=== PATIENT | male | born 1980 | race Asian ===

== ENCOUNTER 2022-09-28 21:26 | Inpatient (IN) | payer OTHER, MEDICAID, SELFPAY ==
[2022-09-28 21:34] VITALS: BP 120/81; PULSE 87; RESP 20; TEMP 36.5; O2SAT 98; BMI 25.8
[2022-09-28 21:49] VITALS: BP 120/81; PULSE 87; RESP 20; TEMP 36.5; O2SAT 98
[2022-09-28 22:08] LABS: Appearance Urine Clear; Color Urine Yellow; Glucose Urine UA Negative (Negative); Leukocyte Esterase Urine Negative (Negative); Nitrite Urine Negative (Negative); PH 5.5 (5.0-9.0); Specific Gravity - Urine 1.025 (1.005-1.025); Urine Blood Negative (Negative); Urine Ketones Negative (Negative); Urine Protein Negative (Neg-Trace)
--- NOTE | 2022-09-28 22:15 | ED_ITS ---
HPI - Psych General Chief Complaint: Psychiatric Symptoms Stated Complaint: crisis/ SI Time Seen by Provider: 09/28/22 22:02 Source: patient Mode of arrival: ambulatory Limitations: no limitations History of Present Illness HPI Narrative: Patient comes to the emergency room complaining of depression and suicidal ideation. Patient states that he is going through divorce at home, has been off his meds for about a year. Patient admits to using heroin. Patient told the triage nurse that he was planning to hang himself. Related Data Allergies Allergy/AdvReac Type Severity Reaction Status Date / Time No Known Allergies Allergy Verified 09/28/22 22:07 Review of Systems Review of Systems: Constitutional : No Weight loss, No Fever, No Chills, No Night Sweats, No Fatigue, No Malaise ENT/Mouth : No Hearing loss, No Ear Pain, No Nasal Congestion, No Sinus Pain, No Hoarseness, No sore throat, No Rhinorrhea, No Swallowing Difficulty Eyes: No Eye Pain, No Swelling, No Redness, No Foreign Body, No Discharge, No Vision Changes Cardiovascular : No Chest Pain, No SOB, No Dyspnea on Exertion, No Orthopnea, No Edema, No Palpitations Respiratory : No Cough, No Sputum, No Wheezing, No Smoke Exposure, No Dyspnea Gastrointestinal : No Nausea, No Vomiting, No Diarrhea, No Constipation, No abdominal Pain, No Hematochezia, No Melena Genitourinary : no irregular bleeding, No Dysuria, No Urinary Frequency, No Hematuria, No Urinary Incontinence, No Urgency, No Flank Pain, No Urinary Flow Changes, No Hesitancy Musculoskeletal : No joint pain, No Myalgias, No Joint Swelling Skin : No Skin Lesions, No rash Neuro : No Weakness, No Numbness, No Paresthesias, No Loss of Consciousness, No Dizziness, No Headache Psych : Complaining of anxiety, depression, suicidal ideation, no homicidal ideation Heme/Lymph: No Bruising, No Bleeding,No Lymphadenopathy Endocrine : No Polyuria, No Polydipsia, No Temperature Intolerance PMF Past Medical History Medical History (Updated 09/28/22 @ 22:24 by Cesia De Paz MD) Depression Substance abuse Social History Social History Smoked in Last 30 Days: Yes Use of substances other than those prescribed or required for medical reasons: Yes Substance Use Type: Heroin Advance Directives: No Advance Directives Information Provided: No Physical Exam Vital Signs: Vital Signs: Last Vital Signs Temp 97.7 F 09/28/22 21:49 Pulse 87 09/28/22 21:49 Resp 20 09/28/22 21:49 BP 120/81 09/28/22 21:49 Pulse Ox 98 09/28/22 21:49 O2 Del Method 09/28/22 21:49 BMI result Body Mass Index 25.8 Const: Other: Appearance: Alert. Oriented X3. No acute distress. Eyes: Pupils equal, round and reactive to light. ENT: Pharynx normal. Neck: Normal inspection. Neck supple. No lymph nodes noted. No crepitus CVS: Normal heart rate and rhythm. Pulses normal. Normal S1 and S2 Respiratory: No respiratory distress. Breath sounds normal. No Wheezing. No rales Abdomen: Soft and nontender. No rigidity. No distention. Skin: Skin warm and dry. Normal skin color. Normal skin turgor. Extremities: No lower extremity edema. No Lacerations. No Rash Neuro: Oriented X 3. No motor deficit. No sensory deficit. Moving all extremities. No slurred speech. CN 2 through 12 grossly intact Psych: calm, cooperative, flat affect Course Course Course Narrative: -patient's labs pending -patient on a Section 12 -care team consult pending -physician observation started at 22:20 Medical Decision Making Lab Data Labs: Lab Results 09/28/22 Range/Units 21:52 Urine Color Yellow Urine Appearance Clear Urine pH 5.5 (5.0-9.0) Ur Specific [place] 1.025 (1.005-1.025) Urine Protein Negative (Neg-Trace) mg/dL Urine Glucose (UA) Negative (Negative) mg/dL Urine Ketones Negative (Negative) mg/dL Urine Blood Negative (Negative) Urine Nitrite Negative (Negative) Ur Leukocyte Esterase Negative (Negative) Discharge Plan Discharge Clinical Impression: Suicidal ideation Patient Disposition: Still a Patient Interventions: [place]-Suicide Risk Severity Scale Last Done: 09/28/22 21:39
[2022-09-28 22:20] LABS: Amphetamine Screen Urine Not Detected (Not Detect); Barbiturates, Urine Not Detected (Not Detect); Benzodiazepines Screen Urine Not Detected (Not Detect); Cannabinoid Screen Urine POSITIVE (Not Detect); Cocaine Screen Urine POSITIVE (Not Detect); Fentanyl, urine POSITIVE (Not Detect); Opiate Screen Urine Not Detected (Not Detect); Phencyclidine Screen Urine Not Detected (Not Detect)
[2022-09-28 22:21] LABS: MANUAL DIFF FLAG NO
[2022-09-28 22:22] LABS: Basophils Percent Auto 0.3 % (0-2); Eosinophils Absolute Auto 0.2 X10*3/uL (0.0-0.4); Eosinophils Percent Auto 1.8 % (0-4); Hematocrit 42.4 % (42.0-52.0); Hemoglobin 14.2 g/dl (14.0-18.0); Imm Gran Abs Auto 0.02 X10*3/uL (0.00-0.03); Imm Gran Pct Auto 0.2 % (0.0-0.4); Lymphocytes Absolute Auto 2.8 X10*3/uL (1.2-4.9); Lymphocytes Percent Auto 29.3 % (20-40); Mean Corpuscular HGB Conc 33.5 g/dl (31.0-36.0); Mean Corpuscular Hemoglobin 30.8 pg (27.0-33.0); Mean Platelet Volume 9.3 fL (9.4-12.4); Monocytes Absolute Auto 0.6 X10*3/uL (0.1-1.2); Monocytes Percent Auto 6.5 % (2-11); Neutrophils Percent Auto 61.9 % (45-73); Platelet Count 256 X10*3/uL (160-400); Red Blood Count 4.61 X10*6/uL (4.60-5.80); Red Cell Distribution Width 12.8 % (11.0-16.0); White Blood Count 9.7 X10*3/uL (4.8-10.8)
[2022-09-28 22:26] LABS: COVID-19 Test Negative (Negative); IDNOW Serial# 6674DD1D
[2022-09-28 22:40] LABS: Alanine Aminotransferase 29 U/L (0-40); Albumin Level 3.8 g/dL (3.5-5.0); Alkaline Phosphatase 88 U/L (39-117); Anion Gap 10 (12-20); Aspartate Amino Transferase 26 U/L (5-37); Bilirubin Direct < 0.2 mg/dL (0.0-0.5); Bilirubin Total 0.3 mg/dL (0.0-1.0); Blood Urea Nitrogen 15 mg/dL (9-16); Calcium 8.4 mg/dL (8.4-10.2); Carbon Dioxide 28 mmol/L (22-29); Chloride 104 mmol/L (96-108); Creatinine Clr Calc Pharmacy 90.4; Estimated Glomerular Filt Rate > 60; Ethanol < 10 mg/dL; Glucose Random 146 mg/dL (60-115); Potassium 3.8 mmol/L (3.3-5.1); Sodium 138 mmol/L (135-145); Total Protein 6.1 g/dL (6.5-8.0)
--- NOTE | 2022-09-29 | ECG_ITS ---
Test Reason : MEDICAL CLEARANCE Blood Pressure : / mmHG Vent. Rate : 086 BPM Atrial Rate : 086 BPM P-R Int : 140 ms QRS Dur : 088 ms QT Int : 374 ms P-R-T Axes : 069 046 053 degrees QTc Int : 447 ms Normal sinus rhythm with sinus arrhythmia Normal ECG No previous ECGs available Referred By: Gold Nicolas Electronically Signed By:Ad Lang
[2022-09-29] MEDS: LORazepam 1 MG TABLET 2 MG PO (00:12)
[2022-09-29 00:13] VITALS: BP 108/63; PULSE 68; RESP 18; TEMP 37; O2SAT 99
--- NOTE | 2022-09-29 00:14 | PC.NURSE ---
Pt requesting something to help with withdrawal symptoms. Pt reported shakiness, chills, nausea, and sweating. Dr. De Paz ordered ativan which was administered. Will continue to monitor.
[2022-09-29] MEDS: traZODone HCL 25 MG HALFTAB PO ×2 (00:24→19:45)
[2022-09-29 03:30] VITALS: BP 110/73; PULSE 74; RESP 16; TEMP 37; O2SAT 99
[2022-09-29] MEDS: ALPRAZolam 0.5 MG TABLET PO (05:07)
[2022-09-29 08:10] VITALS: BP 125/45; PULSE 74; RESP 14; TEMP 37.1; O2SAT 98
--- NOTE | 2022-09-29 09:50 | PC.NURSE ---
Per MD, withholding Suboxone order d/t pt testing positive for Fentynal in urine toxicology screen last night.
[2022-09-29 11:06] VITALS: BP 125/60; PULSE 82; RESP 18; O2SAT 98
[2022-09-29] MEDS: Buprenorphine/Naloxone 8/2 mg FILM 2 FILM SUBLINGUAL (12:16)
[2022-09-29 19:10] VITALS: BP 126/67; PULSE 86; TEMP 36.7
--- NOTE | 2022-09-30 01:22 | PC.ADMIT ---
A Fijian speaking, male aged 41 years was [facility] at 1720 following referral from [facility] ED and CARE team. Pt is not known to and was unable to say if he has had previous inpatient psychiatric or detoxification hospitalizations. Pt self-presented to [facility] ED on 09/28/22 due to SI with plan to hang self and ongoing daily intranasal opiate use. Pt reports feeling depressed, hopeless and guilty. In CARE team assessment, pt reported AH commanding self-harm, but pt reported no current AH today. Pt reported a suicide attempt years ago via drinking bleach. Pt was unable to remember the name of his PCP, but thinks PCP prescribes his trazodone that he takes at home for sleep. Pt has no other providers and was unsure of the name of his pharmacy. Pt lay down in bed upon arrival when he was shown his room. Pt was flat and made little eyecontact. Pt denies but appears anxious and depressed. Pt said he has not had helpful meds in the past, and was unable to identify any helpful medications. Pt denied pain, and said he earlier had experienced withdrawal symptoms but had no current W/D symptoms. Pt refused to participate in the admission, saying I'll do it tomorrow . When a few more questions were asked, pt stated I'm becoming irritated and pulled the covers over his head. Pt lives with significant other and is unemployed with little daytime structure. Pt was informed of his human rights and it was explained how he can initiate a 3 day notice of intent to revoke his conditional voluntary admission legal status. Pt denies medical; issues. Pt had LOVE positive for fentanyl , cocaine, THC; Etoh was <10. Pt is resting in room on 15 minute safety checks at this time. Nurse-Nurse done, admission orders obtained. Initial treatment plan done. Pt declined to do safety tool.
[2022-09-30 09:39] LABS: Estimated Average Glucose 97 mg/dL
[2022-09-30 09:43] VITALS: BP 132/58; PULSE 75; RESP 18; TEMP 36.7; O2SAT 98
[2022-09-30] MEDS: Buprenorphine/Naloxone 8/2 mg FILM 2 FILM SUBLINGUAL (09:45)
--- NOTE | 2022-09-30 10:19 | HO.PSYADMNOT ---
HPI Date of Service: 09/30/22 Chief Complaint: Depression, SI, Polysubstance use disorder Sources of Information: patient interviewed, chart reviewed and crisis/core team assessment reviewed HPI Subjective Notes: Owen Warning and Conditional Voluntary Narrative: Patient is a 42-year-old male with history of depression and substance abuse who presents for worsening depression and the face of heroin abuse and relational strife. Patient reports that he has struggled with heroin addiction for around 15 years or more. Patient reports that a year ago he found out that his has been having an affair. Up until that point patient denies any history of depression or anxiety. He said that since then he has been struggling with feeling sad and down and started using heroin more often to smoke away the pain. Patient reports that he try to get sober a couple months ago with the help his brother and was sober for 2 months but he could not stop thinking of his 's affair, the deteriorating relationship and just wanted to use and so he relapsed. Since then he has been living at his ex-'s house who is supportive. This past week patient, upset with his addiction and struggles to maintain a job had suicidal thoughts such as what is the point of living. He had a thought of hanging himself but never any intention or plans and says there were just thoughts. Patient was unsure what to do but knew that opioid addiction was making his depression worsened harder to get over so he came to the emergency room. Patient was briefly on Suboxone at a detox a month ago and found it helpful. He was started on it in the emergency room and again found that it was very helpful. Patient wants to remain on. He denies any SI at all; he did attempt suicide 1 time before his life but it was about 20 years ago and since then denies any SI, or depression or anxiety; patient denies any history of trauma; denies history of manic type episodes or behaviors; denies alcohol abuse. Patient says that he has a job interview tomorrow at [employer], which he obtained through his son who works there now. Patient is very eager to get to have this interview saying that working considerably helps him stay sober and stable. Patient does not feel any need for antidepressant medications and has no history of taking any. He would like to get on Suboxone as an outpatient and also agrees to [facility] recovery. Patient is asking for discharge in time to make the interview. Past Psychiatric History: Remote history; overdose attempt in his early 20s; since then denies any psychiatric history Medical Evaluation Reviewed: Yes [facility] Medical History (Updated 09/30/22 @ 14:05 by Speedy Patel MD) Cocaine use disorder Depression Opioid dependence Substance abuse Family History: Denies Social History: Finished 11th grade Has 3 children who live with his ex- who is supportive and is currently letting him stay there Currently but in the process of getting Substance History: Opioid addiction since his 20s Trauma History: Denies Diagnostics Vital Signs (24Hr): Vital Signs - 24 hr 09/29/22 11:06 09/29/22 19:10 09/30/22 09:43 Temperature 98.0 F 98.0 F Pulse Rate 82 86 75 Respiratory Rate 18 18 Blood Pressure 125/60 126/67 132/58 L Pulse Oximetry 98 98 Oxygen Delivery Method Room Air Room Air BMI result Body Mass Index 25.8 Labs 09/28/22 22:15 09/28/22 22:15 Labs: Laboratory Results - last 48 hr 09/28/22 09/28/22 09/28/22 21:52 21:52 22:01 WBC RBC Hgb Hct MCV MCH MCHC RDW Plt Count MPV Immature Gran % (Auto) Neut % (Auto) Lymph % (Auto) [place] % (Auto) Eos % (Auto) Baso % (Auto) Lymph # (Auto) [place] # (Auto) Eos # (Auto) Baso # (Auto) Abs Immat Gran (auto) Absolute Neuts (auto) Absolute Nucleated RBC Nucleated RBC % (auto) Sodium Potassium Chloride Carbon Dioxide Anion Gap BUN Creatinine Estim Creat Clear Calc Estimated GFR Random Glucose Estimat Average Glucose Hemoglobin A1c % Calcium Total Bilirubin Direct Bilirubin AST ALT Alkaline Phosphatase Total Protein Albumin Urine Color Yellow Urine Appearance Clear Urine pH 5.5 Ur Specific [place] 1.025 Urine Protein Negative Urine Glucose (UA) Negative Urine Ketones Negative Urine Blood Negative Urine Nitrite Negative Ur Leukocyte Esterase Negative Urine Opiates Screen Not Detected Urine Fentanyl Screen POSITIVE H Ur Barbiturates Screen Not Detected Ur Phencyclidine Scrn Not Detected Ur Amphetamines Screen Not Detected U Benzodiazepines Scrn Not Detected Urine Cocaine Screen POSITIVE H U Marijuana (THC) Screen POSITIVE H Ethyl Alcohol COVID-19 ([facility]) Negative COVID-19 Clin Com See Note 09/28/22 09/28/22 09/30/22 22:15 22:15 08:34 WBC 9.7 RBC 4.61 Hgb 14.2 Hct 42.4 MCV 92.0 MCH 30.8 MCHC 33.5 RDW 12.8 Plt Count 256 MPV 9.3 L Immature Gran % (Auto) 0.2 Neut % (Auto) 61.9 Lymph % (Auto) 29.3 [place] % (Auto) 6.5 Eos % (Auto) 1.8 Baso % (Auto) 0.3 Lymph # (Auto) 2.8 [place] # (Auto) 0.6 Eos # (Auto) 0.2 Baso # (Auto) 0.0 Abs Immat Gran (auto) 0.02 Absolute Neuts (auto) 6.0 Absolute Nucleated RBC 0.000 Nucleated RBC % (auto) 0.0 Sodium 138 Potassium 3.8 Chloride 104 Carbon Dioxide 28 Anion Gap 10 L BUN 15 Creatinine 0.99 Estim Creat Clear Calc 90.4 Estimated GFR > 60 Random Glucose 146 H Estimat Average Glucose 97 Hemoglobin A1c % 5.0 Calcium 8.4 Total Bilirubin 0.3 Direct Bilirubin < 0.2 AST 26 ALT 29 Alkaline Phosphatase 88 Total Protein 6.1 L Albumin 3.8 Urine Color Urine Appearance Urine pH Ur Specific [place] Urine Protein Urine Glucose (UA) Urine Ketones Urine Blood Urine Nitrite Ur Leukocyte Esterase Urine Opiates Screen Urine Fentanyl Screen Ur Barbiturates Screen Ur Phencyclidine Scrn Ur Amphetamines Screen U Benzodiazepines Scrn Urine Cocaine Screen U Marijuana (THC) Screen Ethyl Alcohol < 10 COVID-19 ([facility]) COVID-19 Clin Com Meds/Allergies Meds Home Medications Medication Instructions Recorded Confirmed Type trazodone 25 mg PO BEDTIME 09/29/22 09/29/22 History Allergies Allergies Allergy/AdvReac Type Severity Reaction Status Date / Time No Known Allergies Allergy Verified 09/28/22 22:07 Mental Status Exam Mental Status Exam Narrative: Pt is alert and oriented; behavior is cooperative, friendly and calm; patient is not in distress; dressed in hospital attire with adequate hygiene; mood is described as depressed and affect congruent; eye contact appropriate; Speech is normal rate, volume and prosody and not pressured; no psychomotor agitation/retardation present; thought process is organized and goal directed; Thought content is on tx; otherwise pertinent to relevant topics and without any delusional content, paranoid ideations or grandiosity; denies any SI/HI. There is no evidence of perceptual disturbance. Patients insight and judgment appear intact. Assessment & Plan Assessment & Plan (1) MDD (major depressive disorder), single episode: Status: Acute Code(s): F32.9 - Major depressive disorder, single episode, unspecified (2) Opioid dependence: Status: Acute Code(s): F11.20 - Opioid dependence, uncomplicated (3) Cocaine use disorder: Status: Acute Code(s): F14.10 - Cocaine abuse, uncomplicated Plan HPI: Patient is a 42-year-old male with history of depression and substance abuse who presents for worsening depression and the face of heroin abuse and relational strife. Patient reports that he has struggled with heroin addiction for around 15 years or more. Patient reports that a year ago he found out that his has been having an affair. Up until that point patient denies any history of depression or anxiety. He said that since then he has been struggling with feeling sad and down and started using heroin more often to smoke away the pain. Patient reports that he try to get sober a couple months ago with the help his brother and was sober for 2 months but he could not stop thinking of his 's affair, the deteriorating relationship and just wanted to use and so he relapsed. Since then he has been living at his ex-'s house who is supportive. This past week patient, upset with his addiction and struggles to maintain a job had suicidal thoughts such as what is the point of living. He had a thought of hanging himself but never any intention or plans and says there were just thoughts. Patient was unsure what to do but knew that opioid addiction was making his depression worsened harder to get over so he came to the emergency room. Patient was briefly on Suboxone at a detox a month ago and found it helpful. He was started on it in the emergency room and again found that it was very helpful. Patient wants to remain on. He denies any SI at all; he did attempt suicide 1 time before his life but it was about 20 years ago and since then denies any SI, or depression or anxiety; patient denies any history of trauma; denies history of manic type episodes or behaviors; denies alcohol abuse. Patient says that he has a job interview tomorrow at [employer], which he obtained through his son who works there now. Patient is very eager to get to have this interview saying that working considerably helps him stay sober and stable. Patient does not feel any need for antidepressant medications and has no history of taking any. He would like to get on Suboxone as an outpatient and also agrees to [facility] recovery. Patient is asking for discharge in time to make the interview. Impression: Who patient signed a 3 day. Patient does not want her feeling need for antidepressant medications saying that this is the 1st time he has ever been depressed and that it is situational and regarding his pending divorce. Patient says on Suboxone he is feeling much better, clear minded and would like to be discharged. He says he has never had any thoughts of self-harm for close to 20 years. Denies any active SI at all, saying he just had thoughts and would never act upon it. Patient has 3 children who also serve as a protective factor. Patient does not want to attend an aftercare program, [facility] or the like; he does however like the idea of a [facility] recovery to help him through sobriety. Mostly, Patient is pinning his hopes on Suboxone; while patient minimizes his need for more intensive help to stay sober he has not closed off to it. Patient feels that this job interview tomorrow is a big factor in his remaining stable. He says the interview has been set up for weeks and that working significantly helps him remained stable. Surgery Consultant and forensic social worker met with patient together and afterwards discussed patient's care. Both agree that there is likely little benefit to be obtained by keeping patient on the unit longer. Patient is polite, calm and cooperative. He has put in a 3 day notice saying he is safe, has no SI at all, does not feel the need to be on a psychiatric unit but just needed help to get on Suboxone. Patient does not want any further medication; patient does not want any aftercare programs. Patient is already being set up with an appointment for Suboxone and [facility] recovery is meeting with him today. Furthermore, this opportunity for him to secure employment is likely a stabilizing factor and to miss this opportunity could prove otherwise. At this time both assembly instructions writer and forensic social worker conclude that patient is not in imminent risk of harm to self or others; as it does not seem that further inpatient stable benefit patient and that he does not rise to the level of involuntary commitment, his request for discharge should be honored. Surgery Consultant attempted to call exwife with whom he lives; pt signed WINTER and gave phone number, but assembly instructions writer could not get ahold of her. Patient educated on: diagnosis, medication risk/benefits, substance abuse and therapeutic strategies Informed Consent: understands and further education needed Reason for continued inpatient stay Substantial Risk for: stable for discharge Statement Statement: I have reviewed the history and physical and performed a pertinent examination on my patient. No changes have occurred unless specified. If the History and Physical was not performed prior to admission, the Hospitalist's service will be consulted for completing the admission physical. Time Spent With Patient Time: Total time managing care of this patient today ____ minutes.
[2022-09-30 10:32] LABS: Cholesterol 173 mg/dL; HDL Cholesterol 44 mg/dL; LDL Cholesterol Calculated 117 mg/dl; Triglycerides 62 mg/dL
[2022-09-30 10:35] LABS: Free T4 (Free Thyroxine) 0.93 ng/dL (0.71-1.85); Vitamin B12 356 pg/mL (200-900)
--- NOTE | 2022-09-30 14:36 | PC.NURSE ---
Patient declined NRT at this time.
--- NOTE | 2022-09-30 16:02 | P.DS_ITS ---
DS: Providers Provider Date of Service: 09/30/22 Date of admission: 09/29/22 16:05 Date of discharge: 09/30/22 Primary care physician: None Physician Attending physician on admission: Speedy Patel Attending physician on discharge: Speedy Patel DS: Diagnosis Discharge Diagnosis (1) MDD (major depressive disorder), single episode: Status: Acute (2) Opioid dependence: Status: Acute (3) Cocaine use disorder: Status: Acute DS: Medications Discharge Medications Home Medications: Home Medications Medication Instructions Recorded Confirmed trazodone 25 mg PO BEDTIME 09/29/22 09/29/22 Previous Rx's Medication Instructions Recorded buprenorphine 8 mg-naloxone 2 mg 2 film sublingual DAILY 1 day #2 ea 09/30/22 sublingual film (Suboxone) Mental Status Exam Mental Status Exam Narrative: Pt is alert and oriented; behavior is cooperative, friendly and calm; patient is not in distress; dressed in hospital attire with adequate hygiene; mood is described as depressed and affect congruent; eye contact appropriate; Speech is normal rate, volume and prosody and not pressured; no psychomotor agitation/retardation present; thought process is organized and goal directed; Thought content is on tx; otherwise pertinent to relevant topics and without any delusional content, paranoid ideations or grandiosity; denies any SI/HI. There is no evidence of perceptual disturbance. Patients insight and judgment appear intact. Data Data Completed and Pending Completed studies during hospitalization [Text1]: 09/28/22 09/28/22 09/28/22 21:52 21:52 22:01 WBC RBC Hgb Hct MCV MCH MCHC RDW Plt Count MPV Immature Gran % (Auto) Neut % (Auto) Lymph % (Auto) [place] % (Auto) Eos % (Auto) Baso % (Auto) Lymph # (Auto) [place] # (Auto) Eos # (Auto) Baso # (Auto) Abs Immat Gran (auto) Absolute Neuts (auto) Absolute Nucleated RBC Nucleated RBC % (auto) Sodium Potassium Chloride Carbon Dioxide Anion Gap BUN Creatinine Estim Creat Clear Calc Estimated GFR Random Glucose Estimat Average Glucose Hemoglobin A1c % Calcium Magnesium Total Bilirubin Direct Bilirubin AST ALT Alkaline Phosphatase Total Protein Albumin Triglycerides Cholesterol LDL Cholesterol, Calc HDL Cholesterol Vitamin B12 TSH Free T4 Urine Color Yellow Urine Appearance Clear Urine pH 5.5 Ur Specific Basile 1.025 Urine Protein Negative Urine Glucose (UA) Negative Urine Ketones Negative Urine Blood Negative Urine Nitrite Negative Ur Leukocyte Esterase Negative Urine Opiates Screen Not Detected Urine Fentanyl Screen POSITIVE H Ur Barbiturates Screen Not Detected Ur Phencyclidine Scrn Not Detected Ur Amphetamines Screen Not Detected U Benzodiazepines Scrn Not Detected Urine Cocaine Screen POSITIVE H U Marijuana (THC) Screen POSITIVE H Ethyl Alcohol COVID-19 ([facility]) Negative COVID-19 Clin Com See Note 09/28/22 09/28/22 09/30/22 22:15 22:15 08:34 WBC 9.7 RBC 4.61 Hgb 14.2 Hct 42.4 MCV 92.0 MCH 30.8 MCHC 33.5 RDW 12.8 Plt Count 256 MPV 9.3 L Immature Gran % (Auto) 0.2 Neut % (Auto) 61.9 Lymph % (Auto) 29.3 [place] % (Auto) 6.5 Eos % (Auto) 1.8 Baso % (Auto) 0.3 Lymph # (Auto) 2.8 [place] # (Auto) 0.6 Eos # (Auto) 0.2 Baso # (Auto) 0.0 Abs Immat Gran (auto) 0.02 Absolute Neuts (auto) 6.0 Absolute Nucleated RBC 0.000 Nucleated RBC % (auto) 0.0 Sodium 138 Potassium 3.8 Chloride 104 Carbon Dioxide 28 Anion Gap 10 L BUN 15 Creatinine 0.99 Estim Creat Clear Calc 90.4 Estimated GFR > 60 Random Glucose 146 H Estimat Average Glucose 97 Hemoglobin A1c % 5.0 Calcium 8.4 Magnesium Total Bilirubin 0.3 Direct Bilirubin < 0.2 AST 26 ALT 29 Alkaline Phosphatase 88 Total Protein 6.1 L Albumin 3.8 Triglycerides Cholesterol LDL Cholesterol, Calc HDL Cholesterol Vitamin B12 TSH Free T4 Urine Color Urine Appearance Urine pH Ur Specific [place]ile Urine Protein Urine Glucose (UA) Urine Ketones Urine Blood Urine Nitrite Ur Leukocyte Esterase Urine Opiates Screen Urine Fentanyl Screen Ur Barbiturates Screen Ur Phencyclidine Scrn Ur Amphetamines Screen U Benzodiazepines Scrn Urine Cocaine Screen U Marijuana (THC) Screen Ethyl Alcohol < 10 COVID-19 ([facility]) COVID-19 Clin Com 09/30/22 08:34 WBC RBC Hgb Hct MCV MCH MCHC RDW Plt Count MPV Immature Gran % (Auto) Neut % (Auto) Lymph % (Auto) [place] % (Auto) Eos % (Auto) Baso % (Auto) Lymph # (Auto) [place] # (Auto) Eos # (Auto) Baso # (Auto) Abs Immat Gran (auto) Absolute Neuts (auto) Absolute Nucleated RBC Nucleated RBC % (auto) Sodium Potassium Chloride Carbon Dioxide Anion Gap BUN Creatinine Estim Creat Clear Calc Estimated GFR Random Glucose Estimat Average Glucose Hemoglobin A1c % Calcium Magnesium 2.0 Total Bilirubin Direct Bilirubin AST ALT Alkaline Phosphatase Total Protein Albumin Triglycerides 62 Cholesterol 173 LDL Cholesterol, Calc 117 HDL Cholesterol 44 Vitamin B12 356 TSH 0.20 L Free T4 0.93 Urine Color Urine Appearance Urine pH Ur Specific [place]ile Urine Protein Urine Glucose (UA) Urine Ketones Urine Blood Urine Nitrite Ur Leukocyte Esterase Urine Opiates Screen Urine Fentanyl Screen Ur Barbiturates Screen Ur Phencyclidine Scrn Ur Amphetamines Screen U Benzodiazepines Scrn Urine Cocaine Screen U Marijuana (THC) Screen Ethyl Alcohol COVID-19 ([facility]) COVID-19 Clin Com DS: Summary Hospital Course Hospital Course: HPI: Patient is a 42-year-old male with history of depression and substance abuse who presents for worsening depression and the face of heroin abuse and relational strife.? Patient reports that he has struggled with heroin addiction for around 15 years or more.? Patient reports that a year ago he found out that his has been having an affair.? Up until that point patient denies any history of depression or anxiety.? He said that since then he has been struggling with feeling sad and down and started using heroin more often to smoke away the pain. Patient reports that he try to get sober a couple months ago with the help his brother and was sober for 2 months but he could not stop thinking of his 's affair, the deteriorating relationship and just wanted to use and so he relapsed.? Since then he has been living at his ex-'s house who is supportive.? This past week patient, upset with his addiction and struggles to maintain a job had suicidal thoughts such as what is the point of living.? He had a thought of hanging himself but never any intention or plans and says there were just thoughts. Patient was unsure what to do but knew that opioid addiction was making his depression worsened harder to get over so he came to the emergency room.? Patient was briefly on Suboxone at a detox a month ago and found it helpful.? He was started on it in the emergency room and again found that it was very helpful.? Patient wants to remain on.? He denies any SI at all; he did attempt suicide 1 time before his life but it was about 20 years ago and since then denies any SI, or depression or anxiety; patient? denies any history of trauma; denies history of manic type episodes or behaviors; denies alcohol abuse.? Patient says that he has a job interview tomorrow at [email or web address], which he obtained through his son who works there now.? Patient is very eager to get to have this interview saying that working considerably helps him stay sober and stable.? Patient does not feel any need for antidepressant medications and has no history of taking any.? He would like to get on Suboxone as an outpatient and also agrees to middle school sports coach.? Patient is asking for discharge in time to make the interview. Impression: Who patient signed a 3 day.? Patient does not want her feeling need for antidepressant medications saying that this is the 1st time he has ever been dep ressed and that it is situational and regarding his pending divorce.? Patient says on Suboxone he is feeling much better, clear minded and would like to be discharged.? He says he has never had any thoughts of self-harm for close to 20 years.? Denies any active SI at all, saying he just had thoughts and would never act upon it.? Patient has 3 children who also serve as a protective factor.? Patient does not want to attend an aftercare program, [facility] or the like; he does however like the idea of a middle school sports coach to help him through sobriety.? Mostly, Patient is pinning his hopes on Suboxone; while patient minimizes his need for more intensive help to stay sober he has not closed off to it.? Patient feels that this job interview tomorrow is a big factor in his remaining stable.? He says the interview has been set up for weeks and that working significantly helps him remained stable.? Marine Engine Machinist and social sciences department chair met with patient together and afterwards discussed patient's care.? Both agree that there is likely little benefit to be obtained by keeping patient on the unit longer.? Patient is polite, calm and cooperative.? He has put in a 3 day notice saying he is safe, has no SI at all, does not feel the need to be on a psychiatric unit but just needed help to get on Suboxone.? Patient does not want any further medication; patient does not want any aftercare programs.? Patient is already being set up with an appointment for Suboxone and middle school sports coach is meeting with him today.? Furthermore, this opportunity for him to secure employment is likely a stabilizing factor and to miss this opportunity could prove otherwise. At this time both commercial loan underwriter and social sciences department chair conclude that patient is not in imminent risk of harm to self or others; as it does not seem that further inpatient stable benefit patient and that he does not rise to the level of involuntary commitment, his request for discharge should be honored. Marine Engine Machinist attempted to call exwife with whom he lives; pt signed WINTER and gave phone number, but commercial loan underwriter could not get ahold of her. Time spent discussing smoking cessation with patient: 3 to 10 minutes Status at Discharge Functional status at discharge: independent ambulation Overall status at discharge: patient is back to baseline Time Spent with Patient Time attestation: Total time managing care of this patient today ____ minutes. Time spent: Less than 30 minutes Discharge Plan Discharge Anticipated Discharge Date/Time: 09/30/22 16:55 Patient Disposition: Home, Self-Care Discharge Diagnosis: MDD, single episode, moderate in partial remission Referrals: Simi: Measurement Coordinator [Other] - 1 Week (Measurement Coordinator Resource) [facility] [Other] - 1 Week ([facility] Recovery Resources (recovery coaching)) [facility] [Other] - 1 Week (Information for Mental Health Services ) [facility] [Other] - 10/01/22 2:00 pm (Referral for medication assisted treatment (MAT) Suboxone Appointment in person at [facility] ) Physician,None [Primary Care Provider] - 1 Week Discharge Medications: New buprenorphine-naloxone [Suboxone] 8-2 mg Film 2 film sublingual DAILY 1 Days Qty: 2 0RF Continued trazodone 25 mg PO BEDTIME Discontinued buprenorphine-naloxone [Suboxone] 8-2 mg film 2 strip sublingual DAILY Discharge Orders: Discharge Order (Routine); Ordered 09/30/22 Ordered By: Speedy Patel Diet: Regular diet Activity on Discharge: As tolerated Stand Alone Forms: Patient Portal Discharge page, Community Support Care Plan Goals: Maintain mood and safe behaviors Take medications as prescribed Continue to pursue sobriety Practice coping skills Continue with outpatient providers and reach out to them as needed Health Concerns: Mood stability and behaviors Sobriety Plan of Treatment: Follow up with your Psychiatric provider and other outpatient providers regarding above concerns Take medications as prescribed Assessment: Risk assessment at time of discharge:? Patient was interviewed prior to discharge and found to be fully oriented and without any SI or HI. Patient has insight and demonstrates good judgment in terms of wanting to pursue treatment. Patient is not in imminent risk of harm to self or others and has a safety plan that includes presenting to the closest ER or calling 911 if feeling unsafe.? Patient has been observed closely by nursing and unit staff throughout admission; patient has not engaged in any behaviors that suggest dangerousness to self or others and has demonstrated appropriate behaviors and impulse control
== END 2022-09-30 05:30 | disposition home or self-care (01) | DRG 751 ==
LOC: HO.ED 09-29 12:17 → HO.PM5 09-29 16:12
PROVIDERS: Clinical Nurse Specialist Psychiatric/Mental Health, Adult; Admitting Provider Psychiatry & Neurology Psychiatry; Emergency Provider Emergency Medicine; Visit Provider Psychiatry & Neurology Psychiatry
DX: F32.1 Major depressive disorder, single episode, moderate (principal); R45.851 Suicidal ideations; F11.20 Opioid dependence, uncomplicated; F14.10 Cocaine abuse, uncomplicated; Z20.822 Contact with and (suspected) exposure to COVID-19
CPT/HCPCS: 36415; 80048; 80061; 80076; 80307; 81003; 82077; 82607; 83036; 83735; 84439; 84443; 85025; 87635; 93005; 99285; S9485

== ENCOUNTER → 2022-10-09 09:01 | Outpatient (BNVA) | payer MEDICAID, SELFPAY | PROVIDERS: Visit Provider Nurse Practitioner Psychiatric/Mental Health | DX: Z51.81 Encounter for therapeutic drug level monitoring (principal); F11.20 Opioid dependence, uncomplicated | CPT/HCPCS: 80305; 99202 ==

== ENCOUNTER → 2022-10-16 09:16 | Outpatient (BNVA) | payer MEDICAID, SELFPAY | PROVIDERS: Visit Provider Nurse Practitioner Psychiatric/Mental Health | DX: F11.20 Opioid dependence, uncomplicated (principal); F14.10 Cocaine abuse, uncomplicated | CPT/HCPCS: 80305; 99212 ==

== ENCOUNTER 2022-10-23 09:04 | Outpatient (REF) | payer MEDICAID, SELFPAY ==
[2022-11-02 08:05] LABS: Buprenorphine NEGATIVE; Naloxone NEGATIVE; Norbuprenorphine NEGATIVE
== END 2022-10-23 09:05 | disposition home or self-care (01) ==
LOC: HO.LAB 09:04
PROVIDERS: Visit Provider Nurse Practitioner Psychiatric/Mental Health
DX: F11.20 Opioid dependence, uncomplicated (principal); Z51.81 Encounter for therapeutic drug level monitoring; Z79.899 Other long term (current) drug therapy
CPT/HCPCS: 80305; 80348; 80362; 99212

== ENCOUNTER → 2022-10-30 09:03 | Outpatient (BNVA) | payer MEDICAID, SELFPAY | PROVIDERS: Visit Provider Nurse Practitioner Psychiatric/Mental Health | DX: Z51.81 Encounter for therapeutic drug level monitoring (principal); F11.20 Opioid dependence, uncomplicated | CPT/HCPCS: 80305; 99212 ==

== ENCOUNTER → 2022-11-03 09:15 | Outpatient (BNVA) | payer MEDICAID, SELFPAY | PROVIDERS: Visit Provider Nurse Practitioner Psychiatric/Mental Health | DX: Z13.89 Encounter for screening for other disorder (principal) ==

== ENCOUNTER 2023-03-03 22:50 | Emergency (ER) | payer MEDICAID, SELFPAY ==
[2023-03-03 23:15] VITALS: BP 130/80; PULSE 85; RESP 16; TEMP 36.6; O2SAT 98; BMI 50.1
--- NOTE | 2023-03-03 23:17 | ED.PSYCH ---
HPI - Psych General Chief Complaint: Psychiatric Symptoms Stated Complaint: SI/Crisis Time Seen by Provider: 03/03/23 23:16 Source: patient Mode of arrival: ambulatory History of Present Illness HPI Narrative: Patient with history of heroin abuse been to detox multiple times was there for 10 days came out within 24 hours start using heroin again has happened multiple times wants to stop it but feels very hard feel depressed hurting himself without any plan, patient uses a bundle a day Related Data Home Medications Medication Instructions Recorded Confirmed gabapentin 300 mg capsule 300 mg PO TID 03/03/23 03/03/23 melatonin 3 mg tablet 3 mg PO BEDTIME 03/03/23 03/03/23 nicotine 21 mg/24 hr daily 1 patch topical DAILY 03/03/23 03/03/23 transdermal patch trazodone 50 mg tablet 50 mg PO BEDTIME 03/03/23 03/03/23 Allergies Allergy/AdvReac Type Severity Reaction Status Date / Time No Known Allergies Allergy Verified 03/03/23 23:19 Review of Systems Review of Systems: Yes all other systems are reviewed and are negative [facility] Past Medical History Medical History Cocaine use disorder Depression Opioid dependence Substance abuse Social History Social History Household Members: Significant Other Housing: Unknown / Unable to assess Do you presently have visiting nurse or other home services: No Unable to assess alcohol history related to: Refusing to respond Patient Tobacco Use Status: Refuse Tobacco use screen Substance Use Type: Crack/Cocaine, Heroin, Marijuana and Opiates Advance Directives: No Advance Directives Information Provided: No service: No Sexual orientation: Straight/Heterosexual Physical Exam Vital Signs: Vital Signs: Last Vital Signs Temp 97.8 F 03/03/23 23:15 Pulse 85 03/03/23 23:15 Resp 16 03/03/23 23:15 BP 130/80 03/03/23 23:15 Pulse Ox 98 03/03/23 23:15 O2 Del Method Room Air 03/03/23 23:15 BMI result Body Mass Index 50.1 Appearance: Alert. Oriented X3. No acute distress. Eyes: PERRLA, No Nystagmus ENT: Pharynx normal. Oral Mucosa moist Neck: Normal inspection. Neck supple. CVS: Normal heart rate and rhythm. Pulses normal. Respiratory: No respiratory distress. Equal air entry bilateral, no wheezing/rales/rhonchi Abdomen: Soft and nontender. Bowel sounds are present, no mass palpable, no CVA tenderness Skin: Skin warm and dry. Normal skin color. Normal skin turgor. Extremities: No lower extremity edema. No calf tenderness IVDA track inge++ psych: Feel depressed without any SI plan, no hallucination/ delusion Neuro: Oriented X 3. No motor deficit. No sensory deficit.No cerebellar signs , cranial nerves II-XII intact Medical Decision Making Medical Decision Making MDM Narrative: Patient heroin dependence with depression with suicidal ideation stable labs and vitals , care team consulted for evaluation Lab Data MDM Lab Attestation statement: I reviewed the patient's lab results. 03/03/23 23:34 03/03/23 23:34 Labs: Lab Results 03/03/23 03/03/23 Range/Units 23:34 23:34 WBC 8.9 (4.8-10.8) X10*3/uL RBC 4.32 L (4.60-5.80) X10*6/uL Hgb 12.7 L (14.0-18.0) g/dl Hct 38.3 L (42.0-52.0) % MCV 88.7 (80.0-98.0) fL MCH 29.4 (27.0-33.0) pg MCHC 33.2 (31.0-36.0) g/dl RDW 14.1 (11.0-16.0) % Plt Count 195 (160-400) X10*3/uL MPV 9.1 L (9.4-12.4) fL Immature Gran % (Auto) 0.2 (0.0-0.4) % Neut % (Auto) 70.0 (45-73) % Lymph % (Auto) 20.0 (20-40) % [place] % (Auto) 9.0 (2-11) % Eos % (Auto) 0.6 (0-4) % Baso % (Auto) 0.2 (0-2) % Lymph # (Auto) 1.8 (1.2-4.9) X10*3/uL [place] # (Auto) 0.8 (0.1-1.2) X10*3/uL Eos # (Auto) 0.1 (0.0-0.4) X10*3/uL Baso # (Auto) 0.0 (0.0-0.2) X10*3/uL Abs Immat Gran (auto) 0.02 (0.00-0.03) X10*3/uL Absolute Neuts (auto) 6.2 (2.0-8.3) x10*3/uL Absolute Nucleated RBC 0.000 (0.0-0.012) X10*3/uL Nucleated RBC % (auto) 0.0 (0.0-0.2) /100WBC Sodium 139 (135-145) mmol/L Potassium 3.3 (3.3-5.1) mmol/L Chloride 106 (96-108) mmol/L Carbon Dioxide 24 (22-29) mmol/L Anion Gap 12 (12-20) BUN 17 H (9-16) mg/dL Creatinine 0.91 (0.5-1.4) mg/dL Estim Creat Clear Calc 149.0 Estimated GFR > 60 Random Glucose 86 (60-115) mg/dL Calcium 8.5 (8.4-10.2) mg/dL Total Bilirubin 0.6 (0.0-1.0) mg/dL AST 40 H (5-37) U/L ALT 66 H (0-40) U/L Alkaline Phosphatase 80 (39-117) U/L Total Protein 6.7 (6.5-8.0) g/dL Albumin 3.6 (3.5-5.0) g/dL Ethyl Alcohol < 10 mg/dL Discharge Plan Discharge Clinical Impression: Depression, Opioid dependence, Suicidal ideation Patient Disposition: Still a Patient Prescriptions: No Action trazodone 50 mg tablet 50 mg PO BEDTIME melatonin 3 mg tablet 3 mg PO BEDTIME nicotine 21 mg/24 hr patch 24 hour 1 patch topical DAILY gabapentin 300 mg capsule 300 mg PO TID
--- NOTE | 2023-03-04 06:32 | PC.NURSE ---
Patient slept through the night, no distress observed/reported, care consult ordered/pending evaluation, med rec completed/pending provider's approval, per patient he is on methadone, misplaced his last dose letter from facility in [place], missed to obtain urine sample this morning, VSS, will continue to monitor,
--- NOTE | 2023-03-04 09:18 | PC.NURSE ---
Pt woke ate breakfast, was asked to provide urine sample. Went back to sleep. Just woke, provided sample, c/o withdrawals symptoms. Reports taking 40mg of methadone 2 days ago at a [facility] Detox. Care Team and MD notified. Results pending from Urine Tox.
--- NOTE | 2023-03-04 09:49 | PC.NURSE ---
M in from Recovery to eval.
--- NOTE | 2023-03-04 10:52 | MHC.RECOVRN ---
This loan underwriter met with patient, patient was laying in bed, visibly diaphoretic. Pt reports N/V, bodyaches. This loan underwriter spoke with Provider, 20mg MTD ordered for withdrawal, pt made aware. Pt presented with vague SI and wants detox. Pt has since been cleared by the Care Team, pt seeking detox. Pt reports bundle daily heroin, pt states was stable, however, recent recurrence. ATS bedsearch started.
--- NOTE | 2023-03-04 11:16 | MHC.CARE ---
CARE Team met with patient in [facility] for mental status update and risk assessment. He self presented to the ED last night feeling depressed, hopeless and having suicidal ideation. Patient was alert and oriented, was experiencing withdrawal symptoms so it was difficult for him to fully engage, remained lying down, made intermittent eye contact and spoke softly. Stated that he wants help and struggling with addiction brings him to that level. After discharge from his last admission here in Aug 2022 patient was unable to follow through with referrals due to relapse. Stated he wants to be a father to his children and gain the trust of their mother again by staying in recovery. He denied suicidal ideation, plan or intentions, previous records indicate one attempt to end his life by drinking bleach over 20 years ago. At this time patient does not appear to be in a psychiatric crisis and his emotional response is related to wanting to get help for his addiction. Patient referred to the Recovery Team.
--- NOTE | 2023-03-04 11:50 | PC.NURSE ---
Pt is swearing and banging at [place].
--- NOTE | 2023-03-04 13:36 | MHC.RECOVRN ---
This proposal lead writer met with patient, reviewed plan of care, pt declined detox phone screen, pt to follow up and present at [facility] for MTD intake. Last dose letter printed and given to ED RN, to be given to pt at d/c. Addiction/Recovery team to send MTD referral to [facility]. Pt states i'm still sick , this proposal lead writer reviewed x's 2, that pt has been medicated since here at [facility], due to pt declining phone intake for detox placement, pt to follow up from the community. Pt had expressed success with MTD in the past, interested with continuing on MTD, pt states is staying here in [place]. Pt and this proposal lead writer reviewed MTD clinics in area, pt agreeable to referral sent to [facility]. ED Provider aware of plan.
== END 2023-03-04 13:44 | disposition home or self-care (01) ==
PROVIDERS: Emergency Provider Internal Medicine
DX: R45.851 Suicidal ideations (principal); F32.A Depression, unspecified; F11.20 Opioid dependence, uncomplicated; Z79.899 Other long term (current) drug therapy
CPT/HCPCS: 36415; 80053; 80307; 81003; 85025; 99284